=== PATIENT | male | born 1970 | race African-American/Black ===

== ENCOUNTER 2016-05-16 11:53 | Emergency (ER) | payer MEDICARE ==
[2016-05-16 12:00] VITALS: BMI 21.1
[2016-05-16 12:01] VITALS: BP 138/66; PULSE 107; TEMP 98.8
--- NOTE | 2016-05-16 12:54 | DIRPT ---
CLINICAL DATA: Chest pain, cough, congestion. Sarcoidosis. EXAM: CHEST 2 VIEW COMPARISON: 04/30/2016 FINDINGS: Fibrotic changes throughout both lungs with a central distribution are stable. Normal heart size. No pneumothorax or pleural effusion. IMPRESSION: Chronic pulmonary parenchymal disease. This is consistent with a history of sarcoidosis. Electronically Signed By: Hal Israel M.D. On: 05/16/2016 12:52
--- NOTE | 2016-05-16 13:00 | EDPRACDOC ---
- General Information Chief Complaint: Flu-Like Symptoms Stated Complaint: COUGH/FLU-LIKE SYMPTOMS Time Seen by Provider: 05/16/16 12:52 Information Source: Patient Home Medications: Home Medications Alprazolam [Xanax] 1 mg PO Q8H PRN 04/24/16 Oxycodone HCl [Oxycodone Immediate Release] 15 mg PO Q8H PRN 04/24/16 Prednisone [Deltasone, Orasone] 10 mg PO TID 04/24/16 Ketoprofen 50 mg PO BID PRN #20 capsule 04/30/16 Amox Tr/Potassium Clavulanate [Augmentin Tablet (875mg/125mg)] 1 tab PO BID #20 tablet 05/16/16 Allergies/Adverse Reactions: Allergies Allergy/AdvReac Type Severity Reaction Status Date / Time hydromorphone HCl Allergy Nausea/Vomi Verified 05/16/16 11:58 [From Dilaudid] ting - History of Present Illness Onset: 3 days HPI: Pt c/o fever, earache, sore throat, congestion, yellow productive cough, wheezing x 3 days. Hx sarcoidosis. Denies cp, abd pain, n/v, changes in bowel or bladder, rash. Pt take 30mg prednisone daily Current Symptoms: Reports: Cough, Earache, Fever, Nasal Symptoms, Sore Throat Shortness of Breath: Mild Cough: Reports: Productive, Yellow Rhinorrhea: Reports: Clear Ear Symptoms: Reports: Earache Fever Severity/Quality: Reports: subjective Oral Intake: Normal Urinary Output: Normal Relevant History of: COPD Associated Signs & Symptoms:: Reports: Cough, Earache, Fever, Nasal Symptoms, Sore Throat ED Past Medical History - History Reviewed Yes Nurses notes reviewed and agree except as marked - Patient Medical History Cardiac History: Reports: Hypertension, Syncope Respiratory History: Reports: COPD Musculoskeletal History: Reports: Osteoarthritis Psychological History: Reports: Anxiety. Denies: Depression, Substance Use Disorder Systemic History: Denies: Cancer Additional Past Medical History: Sarcoidosis. CHRONIC PAIN SYNDROME Surgical History: Reports: Other (Right inguinal hernia repair Right eye stents due to glaucoma) - Family Medical History Reports: Hypertension (MOTHER), Cancer (BROYHER, PANCREAS [place]) - Social Medical History Smoking Status: Former smoker Social History: Denies: Substance Use Disorder ETOH: None Substance Abuse: None EDM Review of Systems - Review of Systems Constitutional: Fever Eyes: No Symptoms Reported. negative: Redness, Blurred Vision, Double Vision, Discharge, Pain, Light Sensitive, Photophobia Ears: Pain Throat: Pain Nose: Congestion Mouth: No Symptoms Reported. negative: Pain, Drooling Respiratory: Cough, Shortness of Breath, Wheezing Cardiovascular: No Symptoms Reported. negative: Chest Pain, Palpitations, Syncope, Edema, Orthopnea, PND, Skin Mottling, Cyanosis Gastrointestinal: No Symptoms Reported. negative: Pain, Constipation, Nausea, Vomiting, Diarrhea, Melena, Formula Intolerance Genitourinary: No Symptoms Reported. negative: Dysuria, Hematuria, Frequency, Discharge, Bleeding, Testicular Pain, Neurological: No Symptoms Reported. negative: Headache, Dizziness, Seizure, Numbness, Weakness, Speech Difficulty, Gait Difficulty Musculoskeletal: No Symptoms Reported. negative: Neck, Chestwall, Ribs, Back, Shoulder, Arm, Elbow, Forearm, Wrist, Hand, Pelvis, Hip, Femur, Knee, Leg, Ankle , Foot Integumentary: No Symptoms Reported. negative: Itching, Rash, Bruising, Wound Allergic/Immunologic: No Symptoms Reported. negative: Hives, Itching Hematologic: No Symptoms Reported. negative: Lymphadenopathy, Easy Bruising, Easy Bleeding Psychiatric: No Symptoms Reported. negative: Anxiety, Depression, Hallucinations, Insomnia, Suicidal - Physical Exam Constitutional: Alert Oriented to: Time, Person, Place Last recorded Vital Signs: Last Vital Signs Temp 98.8 F 05/16/16 12:00 Pulse 107 05/16/16 12:00 Resp 22 05/16/16 12:23 BP 138/66 05/16/16 12:00 Pulse Ox 94 05/16/16 12:00 Oxygen Pulse Oxygen Saturation 94 O2 Device Room Air Oxygen Flow Rate Fraction of Inspired Oxygen ( FIO2) - HEENT Head: Normal ( normocephalic) Eye Exam: Normal (PERRL, EOMI, Sclera white) Oropharynx: Red Tympanic Membrane: Bulging (bilateral), Redness ENT EAC: Normal Nose: Congestion Neck: Normal (FROM, trachea at midline) - Respiratory/Cardiovascular Respiratory: Wheezes Cardiovascular: Normal (RRR without murmur, gallop or rub) - GI Auscultation: Normal (NABS) Palpation: Normal (Soft,No rebound or guarding, non distended) Tenderness: Non tender - Musculoskeletal Back: Normal (Non-Tender) Extremities: Normal (Normal tone, Pulses 2+ No cyanosis or edema, FROM) - Integumentary Skin: Normal, Warm, Dry Lymphatics: Normal (no adenopathy) - Neurologic Memory Impaired: Normal Motor Function: Normal (Normal tone, Pulses 2+ No cyanosis or edema, FROM) Mood Description: Normal Perception: Normal - Differential Diagnosis Bronchitis, Pneumonia, Streptococcal, Sinusitis, URI, Viral - Diagnostic Imaging Chest Image interpreted by: Radiologist IMPRESSION: Chronic pulmonary parenchymal disease. This is consistent with a history of sarcoidosis. Decision Time to Discharge: 13:01 - Departure Disposition: Home Condition: Good Final Diagnosis: Acute bronchitis, Acute sinusitis, Acute otitis media Instructions: Acute Bronchitis (ED), Sinusitis (ED), Upper Respiratory Infection (ED) Education/Counseling Given To: Patient Education/Counseling Given Regarding: Diagnosis, Treatment, Follow Up Referrals: Brady Anthony MD [Primary Care Provider] - One Week Prescriptions: Amox Tr/Potassium Clavulanate [Augmentin Tablet (875mg/125mg)] 1 tab PO BID #20 tablet Additional Instructions: Use Tylenol every 4 hours and Motrin every 6 hours as needed for fever or pain.
== END 2016-05-16 13:14 | disposition home or self-care (01) ==
LOC: EDMC 11:53
DX: J20.9 Acute bronchitis, unspecified (principal); J01.90 Acute sinusitis, unspecified; H66.90 Otitis media, unspecified, unspecified ear
CPT/HCPCS: 71020; 99283